=== PATIENT | female | born 1975 | race Caucasian/White ===

== ENCOUNTER 2017-05-02 19:53 | Emergency (ER) | payer OTHER ==
[~2017-05-02] VITALS: Ht 160 cm; Wt 126.1 kg
[2017-05-02] MEDS ORDERED: Atrovent Inha12.9 GM INH ×2 (20:12→20:37)
[2017-05-02] MEDS ORDERED: Ipratr-Albuterol3 ML IH ×2 (20:12→20:37)
[2017-05-02] MEDS ORDERED: ALBU90OI INH ×2 (20:12→20:37)
[2017-05-02] MEDS ORDERED: ALBU2.5V5 NEB ×2 (20:12→20:37)
[2017-05-02] MEDS ORDERED: LAMO100 PO ×2 (20:13→20:37)
[2017-05-02] MEDS ORDERED: GABA300 PO ×2 (20:13→20:37)
[2017-05-02] MEDS ORDERED: SERT100 PO ×2 (20:13→20:37)
[2017-05-02] MEDS ORDERED: HYDHCL25 PO ×2 (20:13→20:37)
[2017-05-02] MEDS ORDERED: TRAZ100 PO ×2 (20:14→20:37)
[2017-12-21] MEDS ORDERED: HYDPAM25 PO (15:26)
[2017-12-21] MEDS ORDERED: LAMO100 PO (15:28)
[2017-12-21] MEDS ORDERED: ALBU90OI INH (16:24)
[2017-12-21] MEDS ORDERED: ALBU3IS INH (16:24)
[2017-12-21] MEDS ORDERED: Zoloft100 MG PO (16:24)
[2017-12-21] MEDS ORDERED: Vistaril25 MG PO (16:24)
[2017-12-21] MEDS ORDERED: Atrovent Inha12.9 GM INH (16:24)
[2017-12-21] MEDS ORDERED: Lamictal100 MG PO (16:24)
[2017-12-21] MEDS ORDERED: TOPI100 PO (16:24)
[2017-12-21] MEDS ORDERED: Neurontin 300300 MG PO (16:24)
[2017-12-21] MEDS ORDERED: Percocet 5-3251 EACH PO (16:24)
[2018-01-16] MEDS ORDERED: HYDPAM25 PO (10:29)
[2018-01-16] MEDS ORDERED: TOPI100 PO ×2 (10:31→11:25)
[2018-01-16] MEDS ORDERED: ALBU3IS INH (11:25)
[2018-01-16] MEDS ORDERED: Atrovent Inha12.9 GM INH (11:25)
[2018-01-16] MEDS ORDERED: Lamictal200 MG PO (11:25)
[2018-01-16] MEDS ORDERED: ALBU90OI INH (11:25)
[2018-01-16] MEDS ORDERED: Neurontin 300300 MG PO (11:25)
== END 2017-05-02 20:53 | disposition home or self-care (01) ==
LOC: ER 19:53
DX: Z76.0 Encounter for issue of repeat prescription (principal); J44.9 Chronic obstructive pulmonary disease, unspecified; F41.9 Anxiety disorder, unspecified; Z79.899 Other long term (current) drug therapy; Z87.891 Personal history of nicotine dependence
CPT/HCPCS: 99282

== ENCOUNTER 2017-10-06 17:50 | Emergency (ER) | payer OTHER ==
[~2017-10-06] VITALS: Ht 157.5 cm; Wt 128.4 kg
[~2017-10-06 17:50] MED LIST: ALBU2.5V5 NEB; ALBU90OI INH; Atrovent Inha12.9 GM INH; GABA300 PO; HYDHCL25 PO; Ipratr-Albuterol3 ML IH; LAMO100 PO; SERT100 PO; TRAZ100 PO
[2017-10-06] MEDS ORDERED: ALBU90OI INH (18:11)
[2017-10-06] MEDS ORDERED: Neurontin 300300 MG PO (18:11)
[2017-10-06] MEDS ORDERED: TRAZ100 PO (18:11)
[2017-10-06] MEDS ORDERED: TOPI100 PO (18:11)
[2017-10-06] MEDS ORDERED: ALBU3IS INH (18:11)
[2017-10-06] MEDS ORDERED: Lamictal100 MG PO (18:11)
[2017-10-06] MEDS ORDERED: HYDHCL25 PO (18:11)
[2017-10-06] MEDS ORDERED: Zoloft100 MG PO (18:11)
== END 2017-10-06 18:35 | disposition home or self-care (01) ==
LOC: ER 17:50
DX: Z76.0 Encounter for issue of repeat prescription (principal); Z79.899 Other long term (current) drug therapy; J45.909 Unspecified asthma, uncomplicated; J44.9 Chronic obstructive pulmonary disease, unspecified; Z87.891 Personal history of nicotine dependence
CPT/HCPCS: 99281

== ENCOUNTER 2018-02-05 13:31 | Emergency (ER) | payer SELFPAY ==
[~2018-02-05] VITALS: Ht 157.5 cm; Wt 127.9 kg
[~2018-02-05 13:31] MED LIST changes: +ALBU3IS INH; +HYDPAM25 PO; +Lamictal100 MG PO; +Lamictal200 MG PO; +Neurontin 300300 MG PO; +Percocet 5-3251 EACH PO; +TOPI100 PO; +Vistaril25 MG PO; +Zoloft100 MG PO
[2018-02-05] MEDS ORDERED: TOPI100 PO (14:28)
[2018-02-05] MEDS ORDERED: Atrovent Inha12.9 GM INH (14:28)
[2018-02-05] MEDS ORDERED: HYDPAM25 PO (14:28)
[2018-02-05] MEDS ORDERED: LAMO100 PO (14:28)
[2018-02-05] MEDS ORDERED: ALBU3IS INH (14:28)
[2018-02-05] MEDS ORDERED: Neurontin 300300 MG PO (14:28)
[2018-02-05] MEDS ORDERED: Zoloft100 MG PO (14:28)
[2018-02-05] MEDS ORDERED: ALBU90OI INH (14:28)
== END 2018-02-05 14:32 | disposition home or self-care (01) ==
LOC: ER 13:31
DX: Z76.0 Encounter for issue of repeat prescription (principal); J44.9 Chronic obstructive pulmonary disease, unspecified; Z79.899 Other long term (current) drug therapy; Z88.6 Allergy status to analgesic agent; Z87.891 Personal history of nicotine dependence
CPT/HCPCS: 94640; 99283-25

== ENCOUNTER 2018-02-19 09:38 | Emergency (ER) | payer OTHER ==
[~2018-02-19] VITALS: Ht 160 cm; Wt 128.4 kg
[2018-02-19] MEDS ORDERED: Percocet 5-3251 EACH PO (10:40)
[2018-02-19] MEDS ORDERED: KETO10 PO (10:40)
== END 2018-02-19 11:15 | disposition home or self-care (01) ==
LOC: ER 09:38
DX: S20.212A Contusion of left front wall of thorax, initial encounter (principal); S70.12XA Contusion of left thigh, initial encounter; Y04.8XXA Assault by other bodily force, initial encounter; Z88.8 Allergy status to other drugs, medicaments and biological substances; Z79.899 Other long term (current) drug therapy; J45.909 Unspecified asthma, uncomplicated; J44.9 Chronic obstructive pulmonary disease, unspecified; Z87.891 Personal history of nicotine dependence
CPT/HCPCS: 71046; 99283-25

== ENCOUNTER → 2019-01-03 | Outpatient (CLI) | payer OTHER ==
[~2019-01-03] MED LIST changes: +KETO10 PO
== END | disposition home or self-care (01) ==
LOC: OLS 09:30 → LAB SHORT 09:30
DX: L25.5 Unspecified contact dermatitis due to plants, except food (principal)
CPT/HCPCS: 87070; 87075; 87205